=== PATIENT | female | born 1995 | race Caucasian/White ===

== ENCOUNTER 2018-12-14 13:26 | Outpatient (CLI) | payer OTHER ==
[~2018-12-14 13:26] MED LIST: PER5325T PO
[2018-12-14 14:11] LABS: BASOPHILS # (AUTO) 0.1 X10'3 (0-0.2); BASOPHILS % (AUTO) 0.8 % (0-1); EOSINOPHILS # (AUTO) 0.2 X10'3 (0-0.9); EOSINOPHILS % (AUTO) 2.4 % (0-6); HEMATOCRIT 42.4 % (35.0-45.0); HEMOGLOBIN 14.2 g/dl (12.0-16.0); LYMPHOCYTES # (AUTO) 1.8 X10'3 (1.1-4.8); LYMPHOCYTES % (AUTO) 26.9 % (21-51); MEAN CORPUSCULAR HEMOGLOBIN 29.2 PG (27.0-31.0); MEAN CORPUSCULAR HGB CONC 33.5 g/dL (33.0-36.5); MEAN CORPUSCULAR VOLUME 87.3 FL (78-98); MEAN PLATELET VOLUME 8.5 FL (7.4-10.4); MONOCYTES # (AUTO) 0.6 X10'3 (0-0.9); MONOCYTES % (AUTO) 8.4 % (2-12); NEUTROPHILS # (AUTO) 4.1 X10'3 (1.8-7.7); NEUTROPHILS % (AUTO) 61.5 % (42-75); PLATELET COUNT 265 X10'3 (140-440); RED BLOOD COUNT 4.86 X10'6 (4.20-5.60); RED CELL DISTRIBUTION WIDTH 13.8 % (11.5-14.5); WHITE BLOOD COUNT 6.7 X10'3 (4.5-11.0)
[2018-12-14 14:18] LABS: CLARITY,URINE SLIGHTLY CLOUDY (Clear); COLOR,URINE YELLOW (Yellow); GLUCOSE, URINE NEGATIVE (Neg); KETONES,URINE NEGATIVE (Neg); LEUKOCYTE ESTERASE ,URINE NEGATIVE (Neg); NITRITES, URINE NEGATIVE (Neg); OCCULT BLOOD,URINE NEGATIVE (Neg); PROTEIN,URINE NEGATIVE (Neg); UROBILINOGEN,URINE 0.2 E.U/dL (0.2-1.0)
[2018-12-14 14:20] LABS: UA COLLECTION TYPE CLN CATCH MIDSTREAM
[2018-12-14 14:24] LABS: BACTERIA,URINE FEW /HPF (Neg); RBC,URINE NONE SEEN /HPF (0-2); SQUAMOUS EPITHELIAL CELL,UR MANY /LPF (FEW); WBC,URINE 0-4 /HPF (0-4)
[2018-12-14 14:31] LABS: ALANINE AMINOTRANSFERASE 25 U/L (12-78); ALBUMIN 3.7 G/DL (3.4-5.0); ALBUMIN/GLOBULIN RATIO 1.3 (1.1-1.5); ALKALINE PHOSPHATASE 37 IU/L (46-116); ANION GAP 5 (8-16); ASPARTATE AMINO TRANSFERASE 17 U/L (10-37); BILIRUBIN,TOTAL 0.4 MG/DL (0.1-1.0); BLOOD UREA NITROGEN 11 MG/DL (7-18); BUN/CREATININE RATIO 15.1 (6.6-38.0); CALCIUM 8.8 MG/DL (8.5-10.1); CHLORIDE 103 MMOL/L (99-107); CHOL/HDL RATIO 4.1 (0.00-4.99); CHOLESTEROL 201 MG/DL (0-200); CREATININE 0.73 MG/DL (0.40-0.90); GLUCOSE 86 MG/DL (70-104); HDL CHOLESTEROL 49 MG/DL (35-60); LDL CHOLESTEROL 143 MG/DL (50-100); POTASSIUM 4.3 MMOL/L (3.5-5.1); SODIUM 137 MMOL/L (135-145); TOTAL PROTEIN 6.5 G/DL (6.4-8.2); TRIGLYCERIDES 89 MG/DL (20-135); eGFR > 90 ML/MIN
== END 2018-12-14 23:59 | disposition home or self-care (01) ==
LOC: LAB 13:26
PROVIDERS: ATTEND Family Medicine
DX: F32.9 Major depressive disorder, single episode, unspecified (principal); Z76.89 Persons encountering health services in other specified circumstances
CPT/HCPCS: 36415; 80053; 80061; 81001; 84439; 84443; 85025

== ENCOUNTER 2019-05-23 15:16 | Emergency (ER) | payer OTHER ==
[~2019-05-23] VITALS: Ht 162.6 cm; Wt 60.0 kg
[2019-05-23] MEDS ORDERED: diazepam inj 5 MG/ML inj. IV ONE ×2 (15:25→15:35)
[2019-05-23] MEDS ORDERED: ketorolac trometh. 30mg/ml inj. IV ONE (15:25)
[2019-05-23] MEDS ORDERED: HYDROcodone/acetaminophen 5mg/325mg tablet PO ONE (15:25)
[2019-05-23] MEDS ORDERED: ORPH100T2 PO (16:07)
[2019-05-23] MEDS ORDERED: KETO10TA2 PO (16:07)
[2019-05-23 16:25] VITALS: BP 102/58
== END 2019-05-23 16:26 | disposition home or self-care (01) ==
LOC: ER 15:17
DX: S39.012A Strain of muscle, fascia and tendon of lower back, initial encounter (principal); F12.90 Cannabis use, unspecified, uncomplicated; X50.0XXA Overexertion from strenuous movement or load, initial encounter; Y93.89 Activity, other specified; Y92.89 Other specified places as the place of occurrence of the external cause; Y99.8 Other external cause status
CPT/HCPCS: 96374; 96375; 99283; J1885; J3360

== ENCOUNTER 2020-12-02 12:31 | Outpatient (CLI) | payer OTHER ==
[~2020-12-02 12:31] MED LIST changes: +KETO10TA2 PO; +ORPH100T2 PO
== END 2020-12-02 23:59 | disposition home or self-care (01) ==
LOC: LAB 12:31
PROVIDERS: ATTEND Family Medicine
DX: Z32.01 Encounter for pregnancy test, result positive (principal); Z3A.00 Weeks of gestation of pregnancy not specified
CPT/HCPCS: 36415; 84702

== ENCOUNTER 2022-10-13 15:57 | Emergency (ER) | payer MEDICAID, OTHER ==
[~2022-10-13] VITALS: Ht 162.6 cm; Wt 61.4 kg
[2022-10-13 16:01] VITALS: BP 115/72
[2022-10-13] MEDS ORDERED: DIAZ5TAB22 PO (16:21)
[2022-10-13] MEDS ORDERED: LIDO700A32 TOP (16:21)
== END 2022-10-13 16:31 | disposition home or self-care (01) ==
LOC: ER 15:57
DX: S39.012A Strain of muscle, fascia and tendon of lower back, initial encounter (principal); M62.830 Muscle spasm of back; F12.90 Cannabis use, unspecified, uncomplicated; Z79.899 Other long term (current) drug therapy; X58.XXXA Exposure to other specified factors, initial encounter; Y93.89 Activity, other specified; Y92.89 Other specified places as the place of occurrence of the external cause; Y99.8 Other external cause status
CPT/HCPCS: 99283

== ENCOUNTER 2024-09-21 14:03 | Emergency (ER) | payer MEDICAID ==
[~2024-09-21] VITALS: Ht 162.6 cm; Wt 60.3 kg
[~2024-09-21 14:03] MED LIST changes: +LIDO700A32 TOP; -ORPH100T2 PO; +ORPH100T4 PO
[2024-09-21] MEDS ORDERED: NAPR-56 PO (16:05)
[2024-09-21] MEDS ORDERED: METH-798 PO (16:05)
[2024-09-21] MEDS: diazepam 5mg tablet PO ONE (16:14)
[2024-09-21] MEDS: ketorolac trometh 30MG/ML vial 30 MG/ML VIAL IM ONE (16:21)
[2024-09-21 16:34] VITALS: BP 107/76; PULSE 78; RESP 16; TEMP 97.9; O2SAT 99
== END 2024-09-21 16:35 | disposition home or self-care (01) ==
LOC: ER 14:03
DX: M54.50 Low back pain, unspecified (principal); F12.90 Cannabis use, unspecified, uncomplicated
CPT/HCPCS: 96372; 99283; J1885